=== PATIENT | male | born 1995 | race Caucasian/White ===

== ENCOUNTER → 2017-06-28 11:43 | Outpatient (CLI) | payer OTHER, SELFPAY ==
--- NOTE | 2017-06-28 11:51 | RAD_ITS ---
STUDY: X-RAY - LEFT ELBOW REASON FOR EXAM: Male, 22 years old. Lump TECHNIQUE: 3 view(s) of the elbow. COMPARISON: None. FINDINGS: Normal visualized humerus, radius and ulna. Normal radiocapitellar and ulnotrochlear articulations. There is nonspecific soft tissue swelling inferior to the proximal ulna. There is no radiopaque foreign body or other etiology noted RAD/Elbow min 3 Views IMPRESSION: Normal x-ray examination of the elbow. Nonspecific soft tissue swelling Electronically Signed: Edgar Dailey MD at 12:10 EDT , Service support ,
== END ==
PROVIDERS: Family Provider Pediatrics; PCP Pediatrics; Visit Provider Pediatrics
DX: R22.32 Localized swelling, mass and lump, left upper limb (principal)
CPT/HCPCS: 73080

== ENCOUNTER → 2017-06-28 15:15 | Outpatient (CLI) | payer OTHER, SELFPAY | PROVIDERS: Family Provider Pediatrics; PCP Pediatrics; Visit Provider Pediatrics | DX: R50.9 Fever, unspecified (principal) | CPT/HCPCS: 87081 ==

== ENCOUNTER → 2018-04-18 15:24 | Outpatient (CLI) | payer OTHER, SELFPAY ==
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
--- NOTE | 2018-04-18 15:26 | RAD_ITS ---
STUDY: X-RAY - CERVICAL SPINE REASON FOR EXAM: Male, 22 years old. Neck pain. TECHNIQUE: 4 view(s) of the cervical spine were obtained. COMPARISON: None FINDINGS: Normal anterior atlantoaxial articulation. Normal odontoid process. Normal cervical lordosis. Normal vertebral bodies and endplates. Normal disc space heights. There is no evidence of acute fracture or loss of vertebral axial height. There is maintenance of normal alignment. The soft tissue structures are unremarkable. RAD/Cerv Spine 2 or 3 Views IMPRESSION: Normal x-ray examination of the visualized cervical spine. Electronically Signed: Matt Balderas DO at 20:55 EST Tel [phone], Service support ,
== END ==
PROVIDERS: Family Provider Pediatrics; PCP Pediatrics; Referring Provider Orthopaedic Surgery; Visit Provider Orthopaedic Surgery
DX: M89.8X1 Other specified disorders of bone, shoulder (principal); M54.2 Cervicalgia
CPT/HCPCS: 72040; 73000

== ENCOUNTER → 2018-04-22 16:53 | Outpatient (CLI) | payer OTHER, SELFPAY ==
--- NOTE | 2018-04-22 16:55 | MRI_ITS ---
STUDY: MRI CERVICAL SPINE WITHOUT CONTRAST REASON FOR EXAM: Male, 22 years old. Neck pain and headaches with left shoulder pain TECHNIQUE: Standardized fat and water weighted pulse sequences were obtained in the sagittal and axial planes. COMPARISON: None FINDINGS: Normal foramen magnum and brainstem-cervical cord junction. Normal craniovertebral junction. Normal anterior atlantoaxial articulation. Normal odontoid process. Normal cervical lordosis. Normal vertebral bodies and posterior osseous elements. C2-3: Normal endplates. Normal disc height, signal and morphology. Normal central canal and intervertebral neural foramina. C3-4: Normal endplates. Normal disc height, signal and morphology. Normal central canal and intervertebral neural foramina. C4-5: Normal endplates. Normal disc height, signal and morphology. Normal central canal and intervertebral neural foramina. C5-6: Normal endplates. Normal disc height, signal and morphology. Normal central canal and intervertebral neural foramina. C6-7: Normal endplates. Normal disc height, signal and morphology. Normal central canal and intervertebral neural foramina. C7-T1: Normal endplates. Normal disc height, signal and morphology. Normal central canal and intervertebral neural foramina. Normal cervical cord. Normal visualized soft tissue structures. MRI/Spine Cervical (Routine) IMPRESSION: Normal unenhanced MR examination of the cervical spine. Electronically Signed: Jason Deleon MD at 18:56 EST , Service support ,
== END ==
PROVIDERS: Family Provider Pediatrics; PCP Pediatrics; Referring Provider Orthopaedic Surgery; Visit Provider Orthopaedic Surgery
DX: G54.0 Brachial plexus disorders (principal)
CPT/HCPCS: 72141

== ENCOUNTER → 2018-06-28 06:37 | Outpatient (CLI) | payer OTHER, SELFPAY ==
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
== END ==
PROVIDERS: Family Provider Family Medicine; PCP Family Medicine; Referring Provider Orthopaedic Surgery; Visit Provider Orthopaedic Surgery
DX: G54.0 Brachial plexus disorders (principal)
CPT/HCPCS: 95886; 95910

== ENCOUNTER 2018-08-15 16:30 | Outpatient (RCR) | payer OTHER, SELFPAY ==
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
--- NOTE | 2018-12-12 15:47 | HP.PT.NRP ---
HP - Discharge Summary (1) - Patient Information LAUREN JUDD was seen in my office for initial evaluation on 07/11/18. The following Plan of Care was established for this patient: Initial Frequency: 2x /Week Initial Duration: 4 Weeks - Anticipated Interventions Patient/Client Instruction: Educate patient on: Condition, Plan of Care For the Purpose of:: To decrease pain, To decrease swelling/inflammation, To increase ROM, To improve muscle performance and motor function, To improve ability to perform ADL's, To increase tolerance to activity/condition/position, To improve ability of physical actions for home/community/work/leisure, To improve health of tissue, To decrease soft tissue restriction, To increase flexibility/ROM, To improve health and function, To improve ability to perform tasks related to life management Therapeutic Exercise to Include: Strength training, Postural training, Flexibilty training, Passive ROM, Active ROM For the Purpose of:: To decrease pain, To decrease swelling/inflammation, To increase ROM, To improve nutrient delivery to tissue, To increase oxygenation perfusion, To improve muscle performance and motor function, To improve ability to perform ADL's, To increase tolerance to activity/condition/position, To improve ability of physical actions for home/community/work/leisure, To improve health of tissue, To decrease soft tissue restriction TENS: Yes IF ES: Yes Thermo therapy (hot pack): Yes Ultrasound (thermal/non thermal): Yes For the Purpose of:: To decrease pain, To decrease swelling/inflammation, To increase ROM, To improve health of tissue, To decrease soft tissue restriction, To increase flexibility/ROM This patient was last seen in our office . Pertinent comments regarding their Physical therapy will appear below: At this point I will be discontinuing this patient from physical therapy. I would be happy to see this patient again in the future if found appropriate by the physician. Thank you! Denis Carson, PT, Cert MDT, [facility]
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
== END 2018-08-15 19:00 | disposition home or self-care (01) ==
LOC: PT 16:30
PROVIDERS: Family Provider Family Medicine; PCP Family Medicine; Referring Provider Orthopaedic Surgery; Visit Provider Orthopaedic Surgery
DX: G56.20 Lesion of ulnar nerve, unspecified upper limb (principal)
CPT/HCPCS: 97014; 97035; 97110; 97140; 97161; G0283

== ENCOUNTER → 2018-09-03 | Outpatient (CLI) | payer OTHER, SELFPAY ==
--- NOTE | 2018-09-03 09:05 | MRI_ITS ---
STUDY: MRI BRAIN WITHOUT CONTRAST REASON FOR EXAM: Male, 23 years old. Headaches TECHNIQUE: Standardized multiplanar fat and water weighted pulse sequences were obtained. COMPARISON: CT 10/26/2014 FINDINGS: Normal size of the ventricles and extra-axial spaces for the patient's age. Normal white matter tracts of the supratentorial brain. Normal bilateral basal ganglia. Normal thalami. There is no extra-axial fluid accumulation. Normal flow voids within the major intracranial circulation suggesting patency by spin echo criteria. Normal sella turcica, pituitary gland, infundibular stalk, optic chiasm and hypothalamus. Normal tectal plate and pineal gland. Normal midbrain, jose and medulla. Normal cerebellum. Normal basal cisterns. Normal bilateral temporal bones. Normal bilateral internal auditory canals. No demonstrated orbital abnormality, within the constraints of a routine brain study. Normal visualized paranasal sinuses. Normal calvarium and skull base. Normal visualized soft tissue structures. Normal visualized upper cervical spine. MRI/Brain without Contrast IMPRESSION: Normal unenhanced MRI of the brain. Electronically Signed: Ra Galloway MD at 9:54 EDT Tel , Service support ,
== END | disposition home or self-care (01) ==
LOC: MRI 08:56
PROVIDERS: Family Provider Family Medicine; PCP Family Medicine; Referring Provider Psychiatry & Neurology Neurology; Visit Provider Psychiatry & Neurology Neurology
DX: R51 Headache (principal); M79.602 Pain in left arm; R53.1 Weakness
CPT/HCPCS: 70551

== ENCOUNTER 2019-09-16 19:58 | Emergency (ER) | payer OTHER, SELFPAY ==
[2019-09-16 19:58] VITALS: BP 128/67; PULSE 108; RESP 16; TEMP 36.9; BMI 26.2
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
[2019-09-16] MEDS: Morphine 4 MG/ML Syringe IV (20:57)
[2019-09-16 21:07] LABS: Absolute Neutrophil Count 13.4 X10^3/uL (2.0-7.7); Basophil# 0.04 X10^3/uL; Basophil% 0.2 % (0-1); Eosinophil# 0.01 X10^3/uL; Eosinophils% 0.1 % (0-5); Hematocrit 46.2 % (40-54); Hemoglobin 15.1 g/dL (13.0-16.5); Lymphocyte % 10.5 % (19-41); Mean Corp Hgb Conc 32.7 g/dL (32-36); Mean Corpuscular Hgb 29.5 pg (27.0-32.0); Mean Corpuscular Volume 90.2 fL (80-94); Mean Platelet Vol. 9.8 fl (6.2-12.0); Monocyte% 6.2 % (0-10); NRBC Flagged by Analyzer 0 % (0-5); Neutrophil # 13.37 X10^3/uL (2.7-7.7); Neutrophil % 82.6 % (47-70); Platelet Count 289 K/mm3 (150-450); RBC Distribution Width CV 12.8 % (11.6-14.6); RBC Distribution Width SD 42.3 fl (35.1-43.9); Red Blood Count 5.12 M/mm3 (4.6-6.2); White Blood Count 16.2 K/mm3 (4.4-11.0)
[2019-09-16 21:17] LABS: Anion Gap 8 (5-15); BUN 20 mg/dL (7-18); BUN/Creat Ratio 19.4 RATIO (10-20); Calcium,Total 8.7 mg/dL (8.5-10.1); Chloride 104 mmol/L (98-107); Creatinine, Serum 1.03 mg/dL (0.70-1.30); EST Glomerular Filtration Rate 94 mL/min (>60); Est Glom Filt Rate - Afr Amer 114 mL/min (>60); Glucose 88 mg/dL (74-106); Potassium 3.7 mmol/L (3.5-5.1); Sodium Level 139 mmol/L (136-145)
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
[2019-09-16 22:16] VITALS: BP 128/84; PULSE 85; RESP 15
[2019-09-16 22:16] LABS: Bacteria 0 SEEN /hpf (None Seen); Mucous, Urine 0 SEEN /hpf (<or=2+); Red Blood Cells-Urine 0 SEEN /hpf (0-5); White Blood Cells 0 SEEN /hpf (0-5)
[2019-09-16 22:18] LABS: Color, Urine Straw (Yellow); Glucose, Dipstick Normal (Normal); Ketone-Dipstick Negative (Negative); Leukocyte Esterase-Dipstick Negative /ul (Negative); Nitrite-Dipstick Negative (Negative); Occult Blood-Urine Negative /ul (Negative); Protein-Dipstick Negative (Negative); Urine Bilirubin Dipstick Negative (Negative); Urine Clarity Clear (Clear); Urine Urobilinogen Normal (Normal)
[2019-09-16 22:28] LABS: Squamous Epithelial Cells - UA 0-5 SEEN /hpf (0-5)
[2019-09-16 23:18] VITALS: BP 124/80; PULSE 74; RESP 16; O2SAT 98
== END 2019-09-16 23:24 | disposition home or self-care (01) ==
PROVIDERS: Emergency Provider Emergency Medicine; PCP Family Medicine
DX: S06.0X9A Concussion with loss of consciousness of unspecified duration, initial encounter (principal); S80.02XA Contusion of left knee, initial encounter; S80.01XA Contusion of right knee, initial encounter; S30.811A Abrasion of abdominal wall, initial encounter; M25.532 Pain in left wrist; M25.552 Pain in left hip; V86.56XA Driver of dirt bike or motor/cross bike injured in nontraffic accident, initial encounter; Y93.9 Activity, unspecified; Y92.9 Unspecified place or not applicable; Y99.9 Unspecified external cause status
CPT/HCPCS: 70450; 71260; 72125; 73110; 73130; 73562; 74177; 80048; 81001; 85025; 96374; 99282; Q9967

== ENCOUNTER → 2020-02-16 11:21 | Outpatient (CLI) | payer OTHER, SELFPAY ==
--- NOTE | 2020-02-16 11:35 | RAD_ITS ---
STUDY: X-RAY - LEFT SHOULDER REASON FOR EXAM: Male, 24 years old. Left shoulder pain, rotator cuff syndrome status post pulling injury TECHNIQUE: 4 view(s) of the shoulder. COMPARISON: None. FINDINGS: Normal glenohumeral articulation. Normal acromioclavicular joint. Normal acromion. Normal humeral head and visualized proximal humerus. The soft tissue structures are unremarkable. Normal visualized pulmonary apex. RAD/Shoulder min 2 Views IMPRESSION: Normal x-ray examination of the shoulder. Electronically Signed: Carlos Lees, at 12:53 EST , Service support ,
== END ==
PROVIDERS: PCP Family Medicine; Referring Provider Family Medicine; Visit Provider Family Medicine
DX: M25.512 Pain in left shoulder (principal)
CPT/HCPCS: 73030

== ENCOUNTER → 2020-08-02 16:27 | Outpatient (CLI) | payer OTHER, SELFPAY ==
--- NOTE | 2020-08-02 16:30 | US_ITS ---
STUDY: SCROTUM ULTRASOUND REASON FOR EXAM: Male, 25 years old. Bilateral scrotal pain worse on the right radiation into the right groin. TECHNIQUE: Ultrasound evaluation of the scrotum was performed with color Doppler and static daily-scale imaging. COMPARISON: None. FINDINGS: RIGHT TESTICLE INTRATESTICULAR: There is a normal size of the right testicle. The right testicle measures 4.4 x 2.8 x 2.5 cm. There is a homogenous echotexture. There is normal arterial and normal venous vascularity. There is no demonstrated right testicular mass or cyst. EXTRATESTICULAR: The epididymis is normal in size. The epididymis head measures 0.9 x 1.4 x 0.9 cm. There is normal vascularity of the epididymis. There is no demonstrated epididymal cystic structure. There is a small hydrocele. There is no demonstrated varicocele. There is no demonstrated extratesticular mass or cyst. LEFT TESTICLE INTRATESTICULAR: There is a normal size of the left testicle. The left testicle measures 4.1 x 6.0 x 2 point cm. There is a homogenous echotexture. There is normal arterial and normal venous vascularity. There is no demonstrated left testicular mass or cyst. EXTRATESTICULAR: The epididymis is normal in size. The epididymis head measures 0.9 x 1.2 x 1.1 cm. There is normal vascularity of the epididymis. There is no demonstrated epididymal cystic structure. There is a small hydrocele. There is no demonstrated varicocele. There is no demonstrated extratesticular mass or cyst. US/Testicular with Arterial Flow IMPRESSION: 1. Normal bilateral testicles and epididymides. 2. Small bilateral hydroceles Electronically Signed: Matt Balderas DO at 22:37 EDT Tel [phone], Service support ,
== END ==
PROVIDERS: PCP Family Medicine; Referring Provider Family Medicine; Visit Provider Family Medicine
DX: N50.811 Right testicular pain (principal)
CPT/HCPCS: 76870; 93976

== ENCOUNTER 2020-11-07 22:07 | Observation (INO) | payer OTHER, SELFPAY ==
[2020-11-07] VITALS (7 sets, daily range): BP systolic 118–133; BP diastolic 81–98; PULSE 74–91; RESP 16–22; TEMP 36.5–36.6; O2SAT 98–100; BMI 26.7
--- NOTE | 2020-11-07 22:11 | EKG12_ITS ---
Test Reason : STROKE Blood Pressure : / mmHG Vent. Rate : 082 BPM Atrial Rate : 082 BPM P-R Int : 158 ms QRS Dur : 092 ms QT Int : 356 ms P-R-T Axes : 042 064 038 degrees QTc Int : 415 ms Normal sinus rhythm Normal ECG Confirmed by RAO SIMMONS, YINA ([id number]), video effects editor EDGARD DOE ([id number]) on 11/11/2020 10:34:06 AM Referred By: PACHECO Confirmed By:YINA YEH MD
--- NOTE | 2020-11-07 22:11 | CT_ITS ---
EXAMINATION : Head CT w/out contrast HISTORY : Neuro deficit, acute, stroke suspected COMPARISON : None. TECHNIQUE : Multiple contiguous axial images were obtained from the skull base to the vertex without intravenous contrast. A radiation dose optimization technique was used for this scan. FINDINGS : The ventricles and sulci are normal in size. There is no evidence for acute intracranial hemorrhage, mass effect, or midline shift. There is no extra-axial fluid collection. There is normal hughes-white differentiation, without CT evidence of acute ischemia or infarct. The skull base and calvarium are unremarkable. The orbits are unremarkable. The paranasal sinuses are clear. The mastoid air cells are well-aerated. The soft tissues are unremarkable. CT/STROKE Brain/Head without Cont IMPRESSION: No acute intracranial abnormality. N.B. : The above Results were Read Back by James Lindsey MD to Wood MD, and understanding confirmed on 11/07/2020 22:42:58 (ET). Electronically Signed: James Lindsey MD at 22:30 EDT Tel , Service support ,
--- NOTE | 2020-11-07 22:18 | CT_ITS ---
We are attempting to reach an attending provider to discuss findings. An addendum with communication details will be sent when the communication is complete. STUDY: CTA HEAD AND NECK WITH CONTRAST REASON FOR EXAM: Male, 25 years old. Stroke. Left hand numbness. Difficulty speaking. RADIATION DOSAGE (If Supplied By Facility): CTDIvol = ( 14.81 ) mGy, DLP = ( 631.62 ) mGycm TECHNIQUE: CT angiography was performed with a multi-detector CT scanner. Data acquisition was obtained from the skull base through the vertex following intravenous administration of IV 100mL [id number]-[id number]. MIP images were reconstructed from the axial data set. Post-processing of the angiographic images was performed, with multiplanar reformation and 3D reconstruction. Individualized dose optimization techniques were used for this CT. COMPARISON: CT scan, 11/09/2020. FINDINGS: Normal bilateral petrous carotid arteries. Normal right cavernous carotid artery with a normal supraclinoid bifurcation. Normal left cavernous carotid artery with a normal supraclinoid bifurcation. Normal right A1 segments of the anterior cerebral artery. Normal left A1 segments of the anterior cerebral artery. Normal intact anterior communicating artery (ACOM). Normal bilateral A2 segments of the anterior cerebral arteries. Normal right M1 and M2 segments of the middle cerebral arteries, with a normal M1 bifurcation. Normal left M1 and M2 segments of the middle cerebral arteries, with a normal M1 bifurcation. Normal right posterior communicating artery (PCOM). Normal left posterior communicating artery (PCOM). There is a small atretic right vertebral artery with a dominant left vertebral artery. Normal basilar artery with a normal basilar bifurcation. The visualized bilateral superior cerebellar (SCA) arteries are normal. Normal bilateral P1, P2 and visualized P3 segments of the posterior cerebral arteries. There is no demonstrated aneurysm of the [place]. There is no demonstrated abnormality of the visualized brain. AORTIC ARCH: Normal visualized aortic arch. Normal origins of the brachiocephalic, left common carotid, and left subclavian arteries. RIGHT CAROTID ARTERIES: Normal right common carotid artery (CCA). Normal right common carotid bulb. Normal origin of the right internal carotid (ICA) artery without a hemodynamically significant stenosis. Normal visualized cervical portion of the right internal carotid artery. Normal origin of the right external carotid artery (ECA). LEFT CAROTID ARTERIES: Normal left common carotid artery (CCA). Normal left common carotid bulb. Normal origin of the left internal carotid (ICA) artery without a hemodynamically significant stenosis. Normal visualized cervical portion of the left internal carotid artery. Normal origin of the left external carotid artery (ECA). VERTEBRAL ARTERIES: Markedly diminutive right vertebral artery. The left artery is enlarged. An incidental finding is the evidence of gas within the spinal canal from the level of T1 on 4 the level C1. This extends into the soft tissues posterior to the left side of the C1 posterior arch. Air is also seen extending on the lateral foramen and within the soft tissues about the transverse processes of C6 and C7. There is no evidence of pneumothorax. There is no visualized spinal fracture. CT/CTA Head AND Neck W/ Contrast IMPRESSION: 1. Normal CTA Head and neck with contrast. 2. Gas within the cervical final canal unknown etiology. Question recent surgery or injection. Electronically Signed: Matt Balderas DO at 22:50 EDT Tel [phone], Service support ,
--- NOTE | 2020-11-07 22:28 | CM.ED ---
SW Note Referral Source: Stroke Alert Referral Reason: Stroke Alert SW responded to stroke alert. Present was patient's mother, Dione Rowe and patient' fimary jane' Katherine. SW educated them on what is transpiring in regards to a stroke. SW provided emotional support. SW remain available if needs arise. Plan: Emotional support to stroke alert Kelli VILLANUEVA
[2020-11-07 22:32] LABS: Absolute Lymphocyte Count 0.98 X10^3/uL (0.83-4.51); Absolute Neutrophil Count 9.1 X10^3/uL (2.0-7.7); Basophil# 0.03 X10^3/uL; Basophil% 0.3 % (0-1); Eosinophil# 0.04 X10^3/uL; Eosinophils% 0.4 % (0-5); Hematocrit 46.5 % (40-54); Hemoglobin 15.4 g/dL (13.0-16.5); Lymphocyte # 0.98 X10^3/ul (0.83-4.51); Lymphocyte % 9.5 % (19-41); Mean Corp Hgb Conc 33.1 g/dL (32-36); Mean Corpuscular Hgb 29.6 pg (27.0-32.0); Mean Corpuscular Volume 89.3 fL (80-94); Mean Platelet Vol. 9.3 fl (6.2-12.0); Monocyte# 0.18 X10^3/uL; Monocyte% 1.7 % (0-10); NRBC Flagged by Analyzer 0 % (0-5); Neutrophil # 9.12 X10^3/uL (2.7-7.7); Neutrophil % 87.9 % (47-70); Platelet Count 302 K/mm3 (150-450); RBC Distribution Width CV 12.6 % (11.6-14.6); RBC Distribution Width SD 41.6 fl (35.1-43.9); Red Blood Count 5.21 M/mm3 (4.6-6.2); White Blood Count 10.4 K/mm3 (4.4-11.0)
[2020-11-07 22:45] LABS: Partial Thromboplast Time 31.4 Seconds (24.1-36.2); Prothrombin Time (Protime)PT. 12.4 SECONDS (11.7-14.9)
--- NOTE | 2020-11-07 22:48 | RAD_ITS ---
STUDY: X-RAY CHEST REASON FOR EXAM: Male, 25 years old. No deficit. Question acute stroke. TECHNIQUE: Single AP portable view of the chest. COMPARISON: CT of the chest, 09/16/2019. FINDINGS: The lungs are clear and expanded. There is no demonstrated pleural abnormality. Normal size heart. Normal mediastinum and mark. Normal visualized pulmonary arteries. Normal visualized aortic arch and descending thoracic aorta. Normal visualized thoracic spine. Normal visualized ribs, clavicles, and shoulders. There is no demonstrated abnormality of the visualized soft tissue structures of the upper abdomen. RAD/Chest 1 View IMPRESSION: Normal x-ray examination of the chest. Electronically Signed: Matt Balderas DO at 23:28 EDT Tel [phone], Service support ,
[2020-11-07 22:52] LABS: Anion Gap 3 (5-15); BUN 17 mg/dL (7-18); BUN/Creat Ratio 17.6 RATIO (10-20); Calcium,Total 9.1 mg/dL (8.5-10.1); Chloride 109 mmol/L (98-107); Creatinine, Serum 0.96 mg/dL (0.70-1.30); EST Glomerular Filtration Rate 101 mL/min (>60); Est Glom Filt Rate - Afr Amer 122 mL/min (>60); Estimated Creatinine Clearance 109.98 ml/min; Glucose 116 mg/dL (74-106); Potassium 4.3 mmol/L (3.5-5.1); Sodium Level 139 mmol/L (136-145); Troponin-I HS 4 pg/mL (3.0-78.0)
--- NOTE | 2020-11-07 23:10 | PCM.HP.STD ---
Documented by User: CATALINO Francis 11/08/20 00:05 HPI - General General Date of Admission: 11/07/20 Date of Service: 11/07/20 Chief Complaint: Slurred speech HPI Narrative LAUREN JUDD, is a 25 M who presents with complaints of slurred speech and increased numbness in his left arm. Patient states he has chronic headaches for which he has failed multiple treatments including Lyrica and gabapentin. Patient received a cervical injection from Dr. Magallon earlier today. Patient also has ulnar nerve compression and experiences numbness and his pinky and ring finger on the left hand. Patient states when he was worked up from his he felt funny and was told that he was speaking funny by a client he was open to the phone. Patient denies fever, chills, shortness of breath, cough, chest pain, nausea, vomiting. [facility] Home Medications NK 11/07/20 [History Last Taken Unknown] Allergy/AdvReac Type Severity Reaction Status Date / Time doxycycline AdvReac NEEDS Verified 11/07/20 22:08 FOLLOW-UP no significant family history no surgical history Social History (Updated 11/07/20 @ 23:52 by CATALINO Francis) Smoking Status: Never smoker alcohol intake: current alcohol intake frequency: a few times a month substance use type: does not use ROS Constitutional Constitutional: Denies anorexia, chills, fatigue, fever(s) or weakness Cardiovascular Cardiovascular: Denies chest pain, edema or palpitations Respiratory/Chest Respiratory/Chest: Denies cough, shortness of breath at rest or shortness of breath with exertion Gastrointestinal Gastrointestinal: Denies abdominal pain, constipation, diarrhea, nausea or vomiting Genitourinary Genitourinary: Denies dysuria Musculoskeletal Musculoskeletal: Denies back pain, extremity pain, joint pain or joint stiffness Integumentary Integumentary: Denies dry skin Neurologic Neurologic: Reports abnormal speech and numbness Psychiatric Psychiatric: Denies anxiety or depression Endocrine Endocrinology: Denies change in body appearance Hematologic/Lymphatic Hematologic/Lymphatic: Denies easy bleeding or easy bruising Vital Signs Vital Signs Vital Signs: 11/07/20 22:17 11/07/20 22:27 11/07/20 22:30 Temperature 97.7 F L 97.7 F L Temperature Source Temporal Temporal Pulse Rate 81 81 91 Respiratory Rate 16 16 21 H Blood Pressure 133/88 H 133/88 H 129/83 H Blood Pressure Mean 103 103 98 Pulse Ox 100 100 100 Oxygen Delivery Method Room Air Room Air Room Air 11/07/20 22:33 11/07/20 23:03 Temperature Temperature Source Pulse Rate 84 76 Respiratory Rate 16 16 Blood Pressure 129/83 H 127/86 H Blood Pressure Mean 98 99 Pulse Ox 100 98 Oxygen Delivery Method Room Air Room Air Weight Weight: 170 lb 10.205 oz Body Mass Index (BMI) 26.7 Physical Exam Const alert, oriented x3 and no apparent distress General Appearance: cooperative HEENT normocephalic and head/scalp atraumatic Eyes conjunctivae normal and no scleral icterus Neck supple and no JVD General: trachea midline Resp normal respiratory effort, normal air movement and clear to auscultation bilaterally Cardio regular rate, regular rhythm, S1 normal heart sound and S2 normal heart sound GI normal to inspection, nondistended, normoactive bowel sounds, soft to palpation and non-tender Extremity normal capillary refill and no clubbing, cyanosis or edema General Extremity: no tenderness to palpation of joints or extremities Skin General Skin Exam: no breakdown and turgor normal Lesions: no lesions Rashes: no rashes Neuro moves all extremities, no focal motor deficits and gait normal Speech: speech abnormal Details: Positive for stuttering Sensory Exam: extremities Motor Exam: strength 5/5 throughout Psych thought process normal, cooperative and affect normal Appearance: appropriate Results Lab / Micro Data Result Diagrams: 11/07/20 22:17 11/07/20 22:17 Labs: Laboratory Results - last 24 hr 11/07/20 22:17: WBC 10.4, RBC 5.21, Hgb 15.4, Hct 46.5, MCV 89.3, MCH 29.6, MCHC 33.1, RDW Std Deviation 41.6, RDW Coeff of [place] 12.6, Plt Count 302, MPV 9.3, Immature Gran % (Auto) 0.200, Neut % (Auto) 87.9 H, Lymph % (Auto) 9.5 L, [place] % (Auto) 1.7, Eos % (Auto) 0.4, Baso % (Auto) 0.3, Absolute Neuts (auto) 9.1 H, Absolute Lymphs (auto) 0.98, Nucleated RBC % 0 11/07/20 22:17: PT 12.4, INR 1.0, APTT 31.4 11/07/20 22:17: Sodium 139, Potassium 4.3, Chloride 109 H, Carbon Dioxide 27.0, Anion Gap 3 L, BUN 17, Creatinine 0.96, Estim Creat Clear Calc 109.98, Est GFR (MDRD) Af Amer 122, Est GFR (MDRD) Non-Af 101, BUN/Creatinine Ratio 17.6, Glucose 116 H, Calcium 9.1, Troponin I High Sens 4 Radiology Impression Head/Neck CTA 11/07/20 22:18 IMPRESSION: 1. Normal CTA Head and neck with contrast. 2. Gas within the cervical final canal unknown etiology. Question recent surgery or injection. Electronically Signed: Matt Balderas DO at 22:50 EDT Tel [phone], Service support , ADDENDUM: 11/07/20 2259 IMPRESSION: 1. Normal CTA Head and neck with contrast. 2. Gas within the cervical final canal unknown etiology. Question recent surgery or injection. N.B. : The above Results were Read Back by Matt Balderas DO to Matthew Wood MD, and understanding confirmed on 11/07/2020 22:52:47 (ET). Electronically Signed: Matt Balderas DO at 22:50 EDT Tel [phone], Service support , Assessment & Plan Assessment/Plan (1) Slurred speech: PLAN: 1. Slurred speech -Admit PCU for observation and NIH stroke scale monitoring -CT and CTA negative for acute findings with the exception of gas within the cervical canal from the level of T1 to level C1. This finding is consistent with injection performed by Dr. Magallon earlier today. -PT, ST and OT to eval and treat -Brain MRI ordered -Every 4 hours vital signs and NIH stroke scale monitoring -CBC, CMP, lipid profile ordered for a.m. as well as TSH, magnesium, hemoglobin A1c. -Urine drug screen positive for benzodiazepines however this may be a result of patient's injection earlier today. -TPA not administered due to resolution of symptoms upon arrival to ER. 2. Chronic headaches -Patient has tried multiple treatments in the past which have not been effective. -Patient denies that he has ever had migraines however discussed with patient that this may be a presentation of complex migraine which is not always present with headache. -As stated above patient received cervical injection by Dr. Magallon earlier today 3. Ulnar nerve neuropathy -Patient states is normal for his pinky ring finger and half of his middle finger to be numb however patient reports currently that his entire hand and forearm are numb. DVT prophylaxis-not indicated, encourage ambulation This patient was seen by CATALINO Francis under the supervision of Dr. Francois. Documented by User: Dr. Alice Francois MD 11/08/20 00:56 HPI - General General Date of Admission: 11/07/20 [facility] Home Medications NK 11/07/20 [History Last Taken Unknown] Allergy/AdvReac Type Severity Reaction Status Date / Time doxycycline AdvReac NEEDS Verified 11/07/20 22:08 FOLLOW-UP Social History (Updated 11/07/20 @ 23:52 by CATALINO Francis) Smoking Status: Never smoker alcohol intake: current alcohol intake frequency: a few times a month substance use type: does not use Results Lab / Micro Data Result Diagrams: 11/07/20 22:17 11/07/20 22:17
--- NOTE | 2020-11-07 23:46 | EDS_ITS ---
HPI History of Present Illness Chief Complaint: Neuro S/Sx Narrative Narrative: Patient presents with speech difficulty. He had a cervical spine injection for chronic headaches earlier today he went to take a nap when he woke up he had slurred speech per family. Apparently he was on the phone with a client who also commented about his speech. He arrives to the ED he thinks he is improved but tells me his speech is worse when he is anxious. No weakness, no vision changes, no sensory deficits. He has chronic left sided sensory deficit. [facility] PFS Home Medications NK 11/07/20 [History Last Taken Unknown] Allergy/AdvReac Type Severity Reaction Status Date / Time doxycycline AdvReac NEEDS Verified 11/07/20 22:08 FOLLOW-UP Social History (Updated 07/04/18 @ 16:[address] Jesus Mendoza, ) Smoking Status: Never smoker ROS ROS ED ROS Narrative Past medical history: Reviewed Medications: Reviewed Social history: Noncontributory Review of systems: All systems negative except as indicated General: No fever Eyes: No visual changes ENT: No upper airway congestion, normal voice Neck: No neck pain Cardiovascular: No chest pain Respiratory: No shortness of breath or cough Gastrointestinal: No abdominal pain, nausea vomiting or diarrhea Genitourinary: No dysuria Musculoskeletal: Denies myalgias no difficulty with ambulation Skin: No rash Neurological: Speech difficulty as in HPI, otherwise no other focal weakness Psych: No recent behavioral changes Hematologic: No easy bleeding or easy bruising EXAM Physical Exam Narrative Exam Narrative: Physical exam General: Well nourished, Well developed, No Acute Distress Head: Normocephalic, Atraumatic Eyes: Conjunctiva not pale ENT: Moist mucous membranes Neck: Supple, Nontender, No lymphadenopathy Cardiovascular: Regular rate, Regular rhythm Respiratory: No distress, CTA bilaterally Abdomen: Soft, Nontender, Nondistended Back: Nontender, Normal Inspection. Negative for: CVA tenderness Extremities: Nontender, No edema Skin: Normal color, No rash Neurological: Alert, Normal Strength, Normal Sensation. See NIH stroke scale. Right lower quadrant he has no aphasia and no dysarthria when I examined him. Psychological: Normal affect Const Vital Signs: 11/07/20 22:17 11/07/20 22:27 11/07/20 22:30 Temperature 97.7 F L 97.7 F L Temperature Source Temporal Temporal Pulse Rate 81 81 91 Respiratory Rate 16 16 21 H Blood Pressure 133/88 H 133/88 H 129/83 H Blood Pressure Mean 103 103 98 Pulse Ox 100 100 100 Oxygen Delivery Method Room Air Room Air Room Air 11/07/20 22:33 11/07/20 23:03 11/07/20 23:30 Temperature Temperature Source Pulse Rate 84 76 74 Respiratory Rate 16 16 22 H Blood Pressure 129/83 H 127/86 H 132/81 H Blood Pressure Mean 98 99 98 Pulse Ox 100 98 100 Oxygen Delivery Method Room Air Room Air Room Air STROKE Vital Signs/Narrative: Vital Signs Temp Pulse Resp BP Pulse Ox 11/07/20 23:30 74 22 H 132/81 H 100 11/07/20 23:03 76 16 127/86 H 98 11/07/20 22:33 84 16 129/83 H 100 11/07/20 22:30 91 21 H 129/83 H 100 11/07/20 22:27 97.7 F L 81 16 133/88 H 100 11/07/20 22:17 97.7 F L 81 16 133/88 H 100 NIHSS Initial: 1a Level of Consciousness: 0 1b LOC Questions (Score 2 if aphasic/stupor): 0 1c LOC Commands (Only score 1st attempt): 0 2 Best Gaze (If aphasic, use reflexive mvmts.): 0 3 Visual: 0 4 Facial Palsy: 0 5 Motor Arm Right (UN = amputation/fusion): 0 5 Motor Arm Left: 0 6 Motor Leg Right: 0 6 Motor Leg Left: 0 7 Limb ataxia (Only + if out of proportion): 0 8 Sensory (Aphasia/stupor=0 or 1, coma=2): 0 9 Best Language: 0 10 Dysarthria (mute, coma=2, intubated=UN): 0 11 Extinction and Inattention (only scored if +): 0 Total Score: 0 MDM MDM MDM Narrative Medical decision making narrative: A stroke work-up per protocol was done. Patient does not meet criteria for TPA secondary to NIH stroke scale of 0. He was also seen by stroke neurologist from [facility] who agrees. We will admit the patient for an MRI. Lab Data Labs: Laboratory Results - last 24 hr 11/07/20 11/07/20 11/07/20 22:17 22:17 22:17 WBC 10.4 RBC 5.21 Hgb 15.4 Hct 46.5 MCV 89.3 MCH 29.6 MCHC 33.1 RDW Std Deviation 41.6 RDW Coeff of Conchita 12.6 Plt Count 302 MPV 9.3 Immature Gran % (Auto) 0.200 Neut % (Auto) 87.9 H Lymph % (Auto) 9.5 L [place] % (Auto) 1.7 Eos % (Auto) 0.4 Baso % (Auto) 0.3 Absolute Neuts (auto) 9.1 H Absolute Lymphs (auto) 0.98 Nucleated RBC % 0 PT 12.4 INR 1.0 APTT 31.4 Sodium 139 Potassium 4.3 Chloride 109 H Carbon Dioxide 27.0 Anion Gap 3 L BUN 17 Creatinine 0.96 Estim Creat Clear Calc 109.98 Est GFR (MDRD) Af Amer 122 Est GFR (MDRD) Non-Af 101 BUN/Creatinine Ratio 17.6 Glucose 116 H Calcium 9.1 Troponin I High Sens 4 Ur Drug Screen Comment 11/07/20 23:30 WBC RBC Hgb Hct MCV MCH MCHC RDW Std Deviation RDW Coeff of Conchita Plt Count MPV Immature Gran % (Auto) Neut % (Auto) Lymph % (Auto) [place] % (Auto) Eos % (Auto) Baso % (Auto) Absolute Neuts (auto) Absolute Lymphs (auto) Nucleated RBC % PT INR APTT Sodium Potassium Chloride Carbon Dioxide Anion Gap BUN Creatinine Estim Creat Clear Calc Est GFR (MDRD) Af Amer Est GFR (MDRD) Non-Af BUN/Creatinine Ratio Glucose Calcium Troponin I High Sens Ur Drug Screen Comment Radiography Diagnostic Testing: Radiology Impression Brain CT 11/07/20 22:11 IMPRESSION: No acute intracranial abnormality. N.B. : The above Results were Read Back by James Lindsey MD to Wood MD, and understanding confirmed on 11/07/2020 22:42:58 (ET). Electronically Signed: James Lindsey MD at 22:30 EDT Tel , Service support , Head/Neck CTA 11/07/20 22:18 IMPRESSION: 1. Normal CTA Head and neck with contrast. 2. Gas within the cervical final canal unknown etiology. Question recent surgery or injection. Electronically Signed: Matt Balderas DO at 22:50 EDT Tel [phone], Service support , ADDENDUM: 11/07/20 3633 IMPRESSION: 1. Normal CTA Head and neck with contrast. 2. Gas within the cervical final canal unknown etiology. Question recent surgery or injection. N.B. : The above Results were Read Back by Matt Balderas DO to Matthew Wood MD, and understanding confirmed on 11/07/2020 22:52:47 (ET). Electronically Signed: Matt Balderas DO at 22:50 EDT Tel [phone], Service support , Chest X-Ray 11/07/20 22:48 IMPRESSION: Normal x-ray examination of the chest. Electronically Signed: Matt Balderas DO at 23:28 EDT Tel [phone], Service support , Discharge Plan Triage Chief Complaint: Neuro S/Sx ED Provider: Matthew Wood Dx/Rx/DC Orders Clinical Impression: Slurred speech Prescriptions: No Action NK RF: 0 Primary Care Provider: [facility] Referrals: [facility] Bettencourt DO [Primary Care Provider] - Disposition Disposition: Acute Care Hospital [facility]
[2020-11-07 23:51] LABS: Amphetamine Urine VISTA NEGATIVE (<1000 ng/mL); Barbiturate Urine VISTA NEGATIVE (< 200 ng/mL); Benzodiazepine Urine VISTA POSITIVE (< 200 ng/mL); Cocaine Urine VISTA NEGATIVE (< 300 ng/mL); Ecstacy Urine VISTA NEGATIVE (< 500 ng/mL); Methadone Urine VISTA NEGATIVE (< 300 ng/mL); PCP Urine VISTA NEGATIVE (< 25 ng/mL); THC Urine VISTA NEGATIVE (< 50 ng/mL); Vista UDS pH Range 6
[2020-11-08] VITALS (10 sets, daily range): BP systolic 103–138; BP diastolic 48–88; PULSE 65–747; RESP 16–21; TEMP 36.7; O2SAT 97–100; BMI 26.2
[2020-11-08] LABS: Magnesium 2.3 mg/dL (1.6-2.6); Thyroid Stim Hormone (TSH) 0.93 uIU/mL (0.358-3.74)
[2020-11-08 00:50] LABS: Hemoglobin A1c 5.2 % (3.8-5.6)
--- NOTE | 2020-11-08 00:50 | MRI_ITS ---
EXAM: MR HEAD WITHOUT INTRAVENOUS CONTRAST CLINICAL INDICATION: CVA, slurred speech x few hours last pm TECHNIQUE: Multiplanar and multisequence MR images of the brain were obtained without intravenous contrast. This report was created using milog report generation technology. COMPARISON: CT head without contrast 11/07/2020. FINDINGS: BRAIN AND EXTRA-AXIAL SPACES: No diffusion restriction throughout the brain parenchyma. 2 varying size lesions in the body of the left caudate nucleus (series 7, image 16; series 8, image 16). These were present previously and are unchanged. No intra- or extra-axial hemorrhage. No evidence of acute infarct. No intracranial mass or mass effect. There is preservation of the daily/white matter interface. Posterior fossa structures are unremarkable. Basal cisterns are patent. SELLA: Unremarkable. Normal sella turcica, pituitary gland, infundibular stalk, optic chiasm and hypothalamus. AUDITORY SYSTEM: Unremarkable. The internal auditory canals are patent. BONES/JOINTS: Unremarkable. No discrete lytic or blastic abnormalities. SINUSES: Unremarkable as visualized. Clear. MASTOID AIR CELLS: Unremarkable as visualized. Clear. ORBITS: Unremarkable as visualized. Both globes, extraocular muscles, optic nerves and retrobulbar fat appear unremarkable. VASCULATURE: Unremarkable as visualized. Normal flow voids in the major intracranial circulation. MRI/Brain without Contrast IMPRESSION: 1. No MRI evidence of acute or subacute ischemic infarct. 2. 2 abnormal lesions in the body of the left caudate nucleus (series 7 and 8, image 16). These were present previously and are unchanged. These are benign lesions but the exact etiology is unknown at this time. MRI of the brain with intravenous contrast to include thin multiplanar sections will help clarify. Electronically Signed: Joo Roberson MD at 14:00 EDT , Service support ,
[2020-11-08] MEDS: 0.9% Normal Saline 1,000 ML 100 ML IV (01:36)
[2020-11-08] MEDS: 0.9% Saline Lock 10 ML Syringe IV (01:39)
[2020-11-08 06:07] LABS: Absolute Lymphocyte Count 0.64 X10^3/uL (0.83-4.51); Absolute Neutrophil Count 9.7 X10^3/uL (2.0-7.7); Basophil# 0.01 X10^3/uL; Basophil% 0.1 % (0-1); Hematocrit 43.5 % (40-54); Hemoglobin 14.7 g/dL (13.0-16.5); Lymphocyte # 0.64 X10^3/ul (0.83-4.51); Lymphocyte % 6.1 % (19-41); Mean Corp Hgb Conc 33.8 g/dL (32-36); Mean Corpuscular Hgb 29.7 pg (27.0-32.0); Mean Corpuscular Volume 87.9 fL (80-94); Mean Platelet Vol. 9.6 fl (6.2-12.0); Monocyte# 0.19 X10^3/uL; Monocyte% 1.8 % (0-10); NRBC Flagged by Analyzer 0 % (0-5); Neutrophil # 9.68 X10^3/uL (2.7-7.7); Neutrophil % 91.7 % (47-70); Platelet Count 317 K/mm3 (150-450); RBC Distribution Width CV 12.4 % (11.6-14.6); RBC Distribution Width SD 40.2 fl (35.1-43.9); Red Blood Count 4.95 M/mm3 (4.6-6.2); White Blood Count 10.6 K/mm3 (4.4-11.0)
--- NOTE | 2020-11-08 06:09 | PCS.PANDOC ---
PANDEMIC DOCUMENTATION INITIATED: Date: 11/08/2020 Time: 49
[2020-11-08 07:01] LABS: ALB/GLOB Ratio 1.1 RATIO (0.9-2.4); AST(SGOT) 15 U/L (15-37); Alanine Aminotransfer ALT/SGPT 32 U/L (16-61); Albumin, Serum 3.8 g/dL (3.2-5.0); Alkaline Phosphatase 80 U/L (45-117); Anion Gap 6 (5-15); BUN 16 mg/dL (7-18); BUN/Creat Ratio 19.8 RATIO (10-20); Chloride 106 mmol/L (98-107); Cholesterol 204 mg/dL (200); Creatinine, Serum 0.81 mg/dL (0.70-1.30); EST Glomerular Filtration Rate 123 mL/min (>60); Est Glom Filt Rate - Afr Amer 149 mL/min (>60); Estimated Creatinine Clearance 130.34 ml/min; Globulin 3.6 g/dL (2.2-4.2); Glucose 157 mg/dL (74-106); High Density Lipoprotein 53 mg/dL; Potassium 4.3 mmol/L (3.5-5.1); Protein, Total 7.4 g/dL (6.4-8.2); Sodium Level 137 mmol/L (136-145); Triglycerides 74 mg/dL; Very Low Density Lipoprotein 15 mg/dL (5-40)
[2020-11-08 07:36] LABS: Bedside Glucose 141 mg/dL (70-110)
[2020-11-08] MEDS: Aspirin 81 MG TAB.CHEW PO (09:24)
--- NOTE | 2020-11-08 10:20 | CASEMGMT ---
PHQ-9 completed, no indications of depression at this time. FREDDY No
--- NOTE | 2020-11-08 13:53 | DCINST_ITS ---
Discharge Instructions Diet Discharge Diet: No restrictions Activity Discharge Activity: Return to Normal Activity Dressing / Incision Call your doctor if you observe: Shortness of breath, Dizziness, Chest pain and - (Worsening numbness/tingling, new neurologic symptoms) Follow Up Care Test Results: Test results from this visit will be discussed in further detail a t your follow-up appointment, if applicable. Discharge Plan Admission Admit Date/Time: 11/07/20 23:14 Primary Reason for Your Visit: Neurologic symptoms Attending Provider: Stella Casiano Primary Care Provider: [facility] Consulting Providers: Gemini Magallon Discharge Orders/Prescriptions Prescriptions: No Action Advil 1 tab PO/SL PRN PRN (Reason: Cold Symptoms) RF: 0 Referrals / Follow Up: Gemini Magallon MD [STAFF PHYSICIAN] - In 1 Week [facility] DO [Primary Care Provider] - In 1 Week Josr Celeste MD [STAFF PHYSICIAN] - In 1 Week Disposition Disposition (needs filled in before D/C Order can be placed): Home, Self Care
--- NOTE | 2020-11-08 14:01 | DS.PCM_ITS ---
Documented by User: Kylee Reyes NP, D[employer] SAL[employer] DIRECTOR-C 11/08/20 14:15 Providers Date of Admission: 11/07/20 Date of Discharge: 11/08/20 Primary Care Physician: Dr. [facility] Bettencourt, Consultations 11/08/20 01:05 Consult: Pain Management Routine Consulting Provider: Gemini Magallon Reason for Consult: post injection slurred speech EMERGENT Consult: No MD Notified: Yes Date Notified: 11/08/20 Time Notified: 01:05 Method of Notification: Verbal Comments:: office administrator called back, Dr. Magallon aware Reason For Visit: DYSARTHRIA, CVA Diagnosis Discharge Diagnosis (1) Slurred speech: Status: Acute Code(s): R47.81 - Slurred speech Medications at Discharge Home Medications Advil 1 tab PO/SL PRN PRN 11/08/20 Hospital Course Operations None Procedures None Summary of Care Provided Minutes Spent on Discharge: 35 Hospital Course: Patient is a 25-year-old male admitted 11/07/2020 due to slurred speech. 1. Transient dysarthria, confusion-CVA ruled out. Patient underwent cervical injection by pain management prior to symptom onset. He states he has had previous cervical injections in the past without any symptoms or reactions. His symptoms have resolved. MRI of brain without infarct. 2 abnormal lesions in the body of the left caudate nucleus that were present previously and unchanged. Benign lesions however etiology unknown. Planned for [facility] neurology consult however patient requesting discharge home. Referred to neurology for further outpatient follow-up. Follow-up with pain management in 1 week. Follow-up with PCP in 1 week. 2. Chronic ulnar nerve neuropathy-follows with pain management, Dr. Magallon. Chronic left upper extremity paresthesias. Patient seen and examined prior to discharge. Physical assessment as noted below. Patient is stable for discharge with follow up recommendations as noted above. This patient was seen by CATALINO Toure under the supervision of Dr. Casiano. Physical Exam Const alert, oriented x3 and no apparent distress Orientation / Consciousness: awake, oriented to person, oriented to place and oriented to time HEENT normocephalic and moist oral mucous membranes Eyes PERRL, EOMs intact bilaterally and conjunctivae normal Neck no lymphadenopathy Resp normal respiratory effort and clear to auscultation bilaterally Cardio regular rate, regular rhythm and no murmurs Peripheral Pulses: pulses 2+ throughout GI normal to inspection, nondistended, normoactive bowel sounds, non-tender and non-distended Extremity normal to inspection Skin no rashes or lesions noted Lesions: no lesions Rashes: no rashes Trauma: no lacerations or abrasions Neuro CN's II-XII intact bilaterally, no focal motor deficits, no sensory deficits noted and deep tendon reflexes 2+ bilaterally Neuro Narrative: Chronic left upper extremity paresthesias. Psych mental status grossly normal and affect normal Weight / BMI Weight Weight: 166 lb 14.239 oz Body Mass Index (BMI) 26.2 ABG / Lab / Microbiology Data Result Diagrams: 11/08/20 04:55 11/08/20 04:55 Laboratory: Laboratory Results - last 24 hr 11/07/20 22:11: Magnesium 2.3, TSH 0.93 11/07/20 22:11: Hemoglobin A1c 5.2 11/07/20 22:11: POC Glucose 141 H 11/07/20 22:17: WBC 10.4, RBC 5.21, Hgb 15.4, Hct 46.5, MCV 89.3, MCH 29.6, MCHC 33.1, RDW Std Deviation 41.6, RDW Coeff of Conchita 12.6, Plt Count 302, MPV 9.3, Imm ature Gran % (Auto) 0.200, Neut % (Auto) 87.9 H, Lymph % (Auto) 9.5 L, [place] % (Auto) 1.7, Eos % (Auto) 0.4, Baso % (Auto) 0.3, Absolute Neuts (auto) 9.1 H, Absolute Lymphs (auto) 0.98, Nucleated RBC % 0 11/07/20 22:17: PT 12.4, INR 1.0, APTT 31.4 11/07/20 22:17: Sodium 139, Potassium 4.3, Chloride 109 H, Carbon Dioxide 27.0, Anion Gap 3 L, BUN 17, Creatinine 0.96, Estim Creat Clear Calc 109.98, Est GFR (MDRD) Af Amer 122, Est GFR (MDRD) Non-Af 101, BUN/Creatinine Ratio 17.6, Glucose 116 H, Calcium 9.1, Troponin I High Sens 4 11/07/20 23:30: Urine Opiates Screen NEGATIVE, Urine Methadone Screen NEGATIVE, Ur Barbiturates Screen NEGATIVE, Ur Phencyclidine Scrn NEGATIVE, Ur Amphetamines Screen NEGATIVE, U Methamphetamin-MDMA NEGATIVE, U Benzodiazepines Scrn POSITIVE H, Urine Cocaine Screen NEGATIVE, U Cannabinoids Screen NEGATIVE, Ur Drug Screen Comment 11/08/20 04:55: WBC 10.6, RBC 4.95, Hgb 14.7, Hct 43.5, MCV 87.9, MCH 29.7, MCHC 33.8, RDW Std Deviation 40.2, RDW Coeff of Conchita 12.4, Plt Count 317, MPV 9.6, Immature Gran % (Auto) 0.300, Neut % (Auto) 91.7 H, Lymph % (Auto) 6.1 L, [place] % (Auto) 1.8, Eos % (Auto) 0.0, Baso % (Auto) 0.1, Absolute Neuts (auto) 9.7 H, Absolute Lymphs (auto) 0.64 L, Nucleated RBC % 0 11/08/20 04:55: Sodium 137, Potassium 4.3, Chloride 106, Carbon Dioxide 25.0, Anion Gap 6, BUN 16, Creatinine 0.81, Estim Creat Clear Calc 130.34, Est GFR (MDRD) Af Amer 149, Est GFR (MDRD) Non-Af 123, BUN/Creatinine Ratio 19.8, Glucose 157 H, Calcium 9.0, Total Bilirubin 0.40, AST 15, ALT 32, Alkaline Phosphatase 80, Total Protein 7.4, Albumin 3.8, Globulin 3.6, Albumin/Globulin Ratio 1.1, Triglycerides 74, Cholesterol 204 H, LDL Cholesterol 136 H, VLDL Cholesterol 15, HDL Cholesterol 53 Microbiology: Microbiology 11/08/20 01:35 Nasal Secretion SARS-CoV-2 Antigen (Rapid) - Final Radiography Diagnostic Testing: Radiology Impression Brain CT 11/07/20 22:11 IMPRESSION: No acute intracranial abnormality. N.B. : The above Results were Read Back by James Lindsey MD to Wood MD, and understanding confirmed on 11/07/2020 22:42:58 (ET). Electronically Signed: James Lindsey MD at 22:30 EDT Tel , Service support , Head/Neck CTA 11/07/20 22:18 IMPRESSION: 1. Normal CTA Head and neck with contrast. 2. Gas within the cervical final canal unknown etiology. Question recent surgery or injection. Electronically Signed: Matt Balderas DO at 22:50 EDT Tel [phone], Service support , ADDENDUM: 11/07/20 2259 IMPRESSION: 1. Normal CTA Head and neck with contrast. 2. Gas within the cervical final canal unknown etiology. Question recent surgery or injection. N.B. : The above Results were Read Back by Matt Balderas DO to Matthew Wood MD, and understanding confirmed on 11/07/2020 22:52:47 (ET). Electronically Signed: Matt Balderas DO at 22:50 EDT Tel [phone], Service support , Chest X-Ray 11/07/20 22:48 IMPRESSION: Normal x-ray examination of the chest. Electronically Signed: Matt Balderas DO at 23:28 EDT Tel [phone], Service support , Brain MRI 11/08/20 00:50 IMPRESSION: 1. No MRI evidence of acute or subacute ischemic infarct. 2. 2 abnormal lesions in the body of the left caudate nucleus (series 7 and 8, image 16). These were present previously and are unchanged. These are benign lesions but the exact etiology is unknown at this time. MRI of the brain with intravenous contrast to include thin multiplanar sections will help clarify. Electronically Signed: Joo Roberson MD at 14:00 EDT , Service support , D/C Instructions Discharge Diet: No restrictions Call your doctor if you observe: Shortness of breath, Dizziness, Chest pain and - (Worsening numbness/tingling, new neurologic symptoms) Meaningful Use Info Meaningful Use Diagnoses (Choose all that apply): None applicable Discharge Plan Admission Admit Date/Time: 11/07/20 23:14 Primary Reason for Your Visit: Neurologic symptoms Attending Provider: Stella Casiano Primary Care Provider: [facility] Consulting Providers: Gemini Magallon Instructions Additional Instructions / Restrictions: Patient Problems: Altered Health Status related to Hospitalization Patient Goals: *Optimal Level of Health *Keep Appointments *Medication Compliance *Remain Safe Discharge Orders/Prescriptions Prescriptions: No Action Advil 1 tab PO/SL PRN PRN (Reason: Cold Symptoms) RF: 0 Referrals / Follow Up: Gemini Magallon MD [STAFF PHYSICIAN] - In 1 Week [facility] DO [Primary Care Provider] - In 1 Week Josr Celeste MD [STAFF PHYSICIAN] - In 1 Week Disposition Disposition (needs filled in before D/C Order can be placed): Home, Self Care Documented by User: Dr. Stella Casiano MD 11/08/20 18:02 Providers Date of Admission: 11/07/20 Reason For Visit: DYSARTHRIA, CVA Medications at Discharge Home Medications Advil 1 tab PO/SL PRN PRN 11/08/20 ABG / Lab / Microbiology Data Result Diagrams: 11/08/20 04:55 11/08/20 04:55 Discharge Plan Admission Admit Date/Time: 11/07/20 23:14 Primary Reason for Your Visit: Neurologic symptoms Attending Provider: Stella Casiano Primary Care Provider: [facility] Consulting Providers: Gemini Magallon Instructions Additional Instructions / Restrictions: Patient Problems: Altered Health Status related to Hospitalization Patient Goals: *Optimal Level of Health *Keep Appointments *Medication Compliance *Remain Safe Discharge Orders/Prescriptions Prescriptions: No Action Advil 1 tab PO/SL PRN PRN (Reason: Cold Symptoms) RF: 0 Referrals / Follow Up: Gemini Magallon MD [STAFF PHYSICIAN] - In 1 Week [facility] DO [Primary Care Provider] - In 1 Week Josr Celeste MD [STAFF PHYSICIAN] - In 1 Week Disposition Disposition (needs filled in before D/C Order can be placed): Home, Self Care Charges/Coding Addendum Addendum: Patient seen by Kylee BAE under my supervision Patient is a 25 y/o male with a PMh as outlined who was admitted via the ED with a complaint of slurred speech and increased numbness of his left arm. He had a history of chronic headaches, which had been difficult to control with medications, and had also recently received a cervical injection for neck pain on day of admission. He was admitted and managed for slurred speech, to r/o stroke. He had a CT of the brain which was negative for any evidence of ischemia, and CTA of hte was also negative. MRI of the brain was negative for any evidence of ischemia or hemorrhage but showed 2 abnormal lesions in the body of the left caudate nucleus which had been previously present and were unchanged. His symptoms had completely resolved at time of review. Patient was discharged home on 11/08/2020 and is to follow-up with his PCP and neurology [facility] 1 to 2 weeks. Patient cannot be evaluated by [facility] as he wanted to be discharged before neurology could review him. Patient seen and examined prior to discharge. He felt well and had no complaints. Review of symptoms otherwise negative. Labs and vitals reviewed. Home medication reviewed and reconciled. O/E: Const alert, oriented x3 and no apparent distress Orientation / Consciousness: awake, oriented to person, oriented to place and oriented to time HEENT normocephalic and moist oral mucous membranes Eyes PERRL, EOMs intact bilaterally and conjunctivae normal Neck no lymphadenopathy Resp normal respiratory effort and clear to auscultation bilaterally Cardio regular rate, regular rhythm and no murmurs Peripheral Pulses: pulses 2+ throughout GI normal to inspection, nondistended, normoactive bowel sounds, non-tender and non-distended Extremity normal to inspection Skin no rashes or lesions noted Lesions: no lesions Rashes: no rashes Trauma: no lacerations or abrasions Neuro CN's II-XII intact bilaterally, no focal motor deficits, no sensory deficits noted and deep tendon reflexes 2+ bilaterally Neuro Narrative: Chronic left upper extremity paresthesias. Psych mental status grossly normal and affect normal Plan is for discharge home today. Rest as per Kylee BAE's note, which I have reviewed and endorsed. Visit Charges OBSV E&M: [id number] Observation care discharge
[2020-11-08] MEDS: Acetaminophen 325 MG Tablet 650 MG PO (14:19)
== END 2020-11-08 13:55 | disposition home or self-care (01) ==
LOC: ED 23:51 → PCU 11-08 00:12
PROVIDERS: Emergency Medicine; Admitting Provider Family Medicine; Emergency Provider Emergency Medicine; PCP Family Medicine; Visit Provider Student in an Organized Health Care Education/Training Program
DX: F80.2 Mixed receptive-expressive language disorder (principal); G56.22 Lesion of ulnar nerve, left upper limb; R51.9 Headache, unspecified; R29.700 NIHSS score 0; R20.2 Paresthesia of skin; R41.0 Disorientation, unspecified; R20.0 Anesthesia of skin
CPT/HCPCS: 36415; 70450; 70496; 70498; 70551; 71045; 80048; 80053; 80061; 80307; 82962; 83036; 83735; 84443; 84484; 85025; 85610; 85730; 87426; 92610; 93005; 94762; 96360; 96361; 97802; 99218; 99251; 99285; J7030; Q9967; A4216; G0378; G0463

== ENCOUNTER → 2021-06-18 07:18 | Outpatient (CLI) | payer OTHER, SELFPAY ==
--- NOTE | 2021-06-18 07:32 | MRI_ITS ---
EXAM: MR HEAD WITHOUT AND WITH INTRAVENOUS CONTRAST CLINICAL INDICATION: Follow-up abnormal findings on previous MRI of the brain. TECHNIQUE: Multiplanar and multisequence MR images of the brain were obtained without and with intravenous contrast. This report was created using [employer] report generation technology. CONTRAST: 17ML IV DOTAREM COMPARISON: MRI brain without contrast 11/08/2020. CT head without contrast 11/07/2020. FINDINGS: BRAIN AND EXTRA-AXIAL SPACES: No focal signal masses throughout the brain parenchyma. No abnormal enhancing lesions intraaxially and extra-axially. Thin postcontrast axial images show CSF signal intensity in the mid body of the left caudate nucleus blending imperceptibly with the left lateral ventricle in the coronal reconstructed images. No intra- or extra-axial hemorrhage. No evidence of acute infarct. There is preservation of the daily/white matter interface. Posterior fossa structures are unremarkable. No hydrocephalus. Basal cisterns are patent. SELLA: Unremarkable. Normal sella turcica, pituitary gland, infundibular stalk, optic chiasm and hypothalamus. AUDITORY SYSTEM: Unremarkable. The internal auditory canals are patent. BONES/JOINTS: Unremarkable. No discrete lytic or blastic abnormalities. SINUSES: Unremarkable as visualized. Clear. MASTOID AIR CELLS: Unremarkable as visualized. Clear. ORBITS: Unremarkable as visualized. Both globes, extraocular muscles, optic nerves and retrobulbar fat appear unremarkable. VASCULATURE: Unremarkable as visualized. Normal flow voids in the major intracranial circulation. MRI/Brain W/WO Contrast IMPRESSION: 1. Normal MRI brain with and without contrast. 2. The previously described abnormal lesions in the body of left caudate nucleus are CSF signal intensity and nonenhancing. They are lateral extensions of the mid body of the left lateral ventricle as confirmed on the postcontrast T1 weighted coronal views and the T2 weighted coronal FSE sequences. Electronically Signed: Joo Roberson MD at 14:11 EDT ,
== END ==
PROVIDERS: PCP Family Medicine
DX: R93.0 Abnormal findings on diagnostic imaging of skull and head, not elsewhere classified (principal)
CPT/HCPCS: 70553; A9575

== ENCOUNTER 2022-08-27 13:30 | Emergency (ER) | payer OTHER, SELFPAY ==
[2022-08-27 13:31] VITALS: BP 148/99; PULSE 98; RESP 18; TEMP 36.6; O2SAT 100
--- NOTE | 2022-08-27 13:39 | ED.RN ---
[place] from [facility] care coming in to do drug testing.
[2022-08-27] MEDS: Orphenadrine 60 MG/2 ML Ampul IM (14:12)
[2022-08-27] MEDS: Ketorolac 30 MG/ML Syringe IM (14:12)
--- NOTE | 2022-08-27 14:45 | EDS_ITS ---
HPI <CATALINO Mitchell - Last Filed: 08/27/22 15:04> History of Present Illness Chief Complaint: Back Narrative Narrative: Patient is a 27-year-old male with no significant medical history presents to the emergency department with right-sided back pain that raise down the right leg. This is a Workmen's Comp. case. 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 He states he took a step back, turned a certain way and had a severe pain to the right lower back that raise on the right leg. Patient continues to have right lower back pain as well as some numbness and tingling that goes down to the right foot. He is ambulatory h owever does have worsening pain with any bending, sitting or standing for extended period of time. He denies any bowel or bladder incontinence. No history of any IV drug abuse. PFSH <CATALINO Mitchell - Last Filed: 08/27/22 15:04> PFSH Home Medications Advil 1 tab PO/SL PRN PRN Cold Symptoms 11/08/20 [History Last Taken Unknown] naproxen 500 mg tablet (Naprosyn) 500 mg PO BID PRN pain #20 tabs 08/27/22 [Rx Last Taken Unknown] oxycodone-acetaminophen 5 mg-325 mg tablet (Percocet) 1 tab PO Q8H PRN pain 3 days #10 tabs 08/27/22 [Rx Last Taken Unknown] prednisone 50 mg tablet 50 mg PO DAILY #5 tabs 08/27/22 [Rx Last Taken Unknown] Allergy/AdvReac Type Severity Reaction Status Date / Time doxycycline AdvReac NEEDS Verified 11/07/20 22:08 FOLLOW-UP Social History (Updated 11/08/20 @ 01:05 by Marlena Garcia) household members: family housing: house current occupational status: employed 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 Smoking Status: Never smoker alcohol intake: current alcohol intake frequency: a few times a month substance use type: does not use ROS <CATALINO Mitchell - Last Filed: 08/27/22 15:04> ROS ED ROS Narrative Constitutional: Negative for fever, chills, weight loss, weakness Eyes: Negative for vision loss, vision change, double vision ENT: Negative for any sore throat, ear pain, congestion Cardiovascular: Negative for any chest pain, tightness, palpitations Respiratory: Negative for any cough, sputum production, hemoptysis, dyspnea, dyspnea on exertion, orthopnea Gastrointestinal: Negative for any abdominal pain, nausea, vomiting, diarrhea, constipation, blood in stool, blood in vomit : Negative for any urinary frequency, dysuria, retention, blood in urine Muscle skeletal: Negative for any muscle joint pain, stiffness, myalgias, arthralgias, neck pain. Positive right lower back pain that radiates to the right leg Neurological: Negative for any headache, syncope, numbness or tingling, dizziness Skin: Negative for any rashes, lumps, itching, abrasions, lacerations Psychiatric: Negative for any depression, anxiety, stress, suicidal ideation, homicidal ideation Hematologic: Negative for any easy bruising, excessive bruising, easy bleeding Allergies: Negative for any eczema, hives, rash EXAM <CATALINO Mitchell - Last Filed: 08/27/22 15:04> Physical Exam Narrative Exam Narrative: Vital signs reviewed. HEET: Head normocephalic atraumatic, TMs clear bilaterally. Posterior pharynx is clear, moist mucous membranes. Nares clear bilaterally. Neck: Supple with no lymphadenopathy or tenderness. No signs of meningismus, negative jolt sign. Cardiac: Regular rate and rhythm no murmurs gallops or rubs, equal peripheral pulses bilaterally. Respiratory: Lungs clear to auscultation bilaterally. No chest tenderness. Abdomen: Soft, nontender, nondistended. No abdominal bruit or pulsatile masses. No hepatosplenomegaly Extremities: No peripheral edema, no signs of gross trauma or deformity. Active full range of motion of all extremities. Patient patient does have some right lower back pain that raise on the right leg. Positive straight leg test. Patient does have pain that goes down to the bottom of the foot. There is no active foot drop. Patient able to walk on his heels as well as his toes. Reflexes are intact. No red flag signs. Neuro: Cranial nerves II through XII intact, no focal neurological deficits. Skin: Clean dry and intact with no rash, purpura, petechiae, vesicles or pustules. Backs/flank: No CVA tenderness, no midline spinal tenderness, no deformity. Psych: Normal mood and affect. No SI, HI or acute psychosis. Const Vital Signs: 08/27/22 13:31 Temperature 97.8 F Temperature Source Temporal Pulse Rate 98 Respiratory Rate 18 Blood Pressure 148/99 H Blood Pressure Mean 115 Pulse Ox 100 Oxygen Delivery Method Room Air <Dr. Domingo Hamilton MD - Last Filed: 08/27/22 15:13> Physical Exam Const Vital Signs: 08/27/22 13:31 Temperature 97.8 F Temperature Source Temporal Pulse Rate 98 Respiratory Rate 18 Blood Pressure 148/99 H Blood Pressure Mean 115 Pulse Ox 100 Oxygen Delivery Method Room Air MDM <CATALINO Mitchell - Last Filed: 08/27/22 15:04> [facility] Treatment and Re-Evaluation :: Patient appears well, patient appears nontoxic, vital signs are stable. Patient presents to the emergency department with complaints of lower back pain while at work. There is no trauma, do not believe an x-ray is indicated. Patient's physical examination is consistent with a lumbar strain with sciatica. Patient has no red flag signs, no concern for cauda equina, spinal abscess. Patient has no foot drop. Patient was given IM Toradol, IM Norflex. He will also be given a [place] here. He was given tomorrow off, he will have to follow-up with Workmen's Comp. as well as return to work with full accommodations such as limited bending, no lifting over 20 pounds, allowed to sit and stand for comfort. No prolonged walking or standing. Patient will be sent home with anti-inflammatories as well as narcotic analgesia, and a short course of steroids. He is instructed to follow-up at the [facility] for Workmen's Comp., given return precautions to the emergency department. He is happy with the plan of care, all questions answered. Patient stable for discharge <Dr. Domingo Hamilton MD - Last Filed: 08/27/22 15:13> [facility] Narrative Medical decision making narrative: I have personally performed a face to face assessment of the patient and have reviewed the MANUELITO Note. I performed a substantive portion of the visit including all aspects of the following. My acosta findings include: History is remarked for acute right back pain radiating down the back of his leg with numbness of his foot. He has no prior history of back problems. There is no history of direct trauma. He has bowel bladder dysfunction. He he states its unusual for him to walk. Uncertain whether he has a foot drop. He has no buckling of his knees going up or down steps. Exam is remarkable for pain. He has slow limited motion because of pain. Straight leg test is positive on the right with a negative crossover test. Patella and ankle reflex are 2+. EHLs intact. Able to walk on heels and toes. Gait observed without foot drop. Able to perform a 1 legged squat more easily on the left than right. Right he states he had difficulty performing because of pain. Patient has altered sensation L5 dermatome on the right only. Patella and ankle reflex are 2+ and symmetric. DP and PT pulse are palpable. Medical Decision Making patient's history and physical is concerning for sciat ica due to an L5 disc. Since he has no objective neurologic findings but does complain of subjective altered sensation L5 dermatome conservative therapy with oral meds rest and ice. He will need follow-up with corporate care and possible referral to spine surgeon. Other additions or changes: Discharged home with appropriate home-going instructions and work excuse Discharge Plan Triage Chief Complaint: Back ED Midlevel Provider: Matthew Patel ED Provider: Domingo Hamilton Dx/Rx/DC Orders Clinical Impression: Acute bilateral low back pain with right-sided sciatica, Paresthesia of right foot Instructions: ED Back Sprain/Strain, ED Sciatica Prescriptions: New prednisone 50 mg tablet 50 mg PO DAILY Qty: 5 0RF oxycodone-acetaminophen [Percocet] 5-325 mg tablet 1 tab PO Q8H PRN (Reason: pain) 3 Days Qty: 10 0RF naproxen [Naprosyn] 500 mg tablet 500 mg PO BID PRN (Reason: pain) Qty: 20 0RF No Action Advil 1 tab PO/SL PRN PRN (Reason: Cold Symptoms) Primary Care Provider: Harrison Bettencourt Referrals: Harrison Bettencourt DO [Primary Care Provider] - Activity Restrictions/Additional Instructions: Please follow the work status. Due to the sciatic, best to be sent to a spine physician. Please use medications as prescribed. You may not use the oxycodone while at work. Disposition Disposition: Home, Self Care
[2022-08-27] MEDS: HYDROcodone Bitartrate/Apap 5/325 Tablet PO (15:14)
== END 2022-08-27 15:22 | disposition home or self-care (01) ==
PROVIDERS: Emergency Provider Emergency Medicine; PCP Family Medicine; Visit Provider Emergency Medicine
DX: M54.41 Lumbago with sciatica, right side (principal); R20.2 Paresthesia of skin
CPT/HCPCS: 96372; 99281; 99282

== ENCOUNTER → 2022-09-19 | Outpatient (CLI) | payer OTHER, SELFPAY ==
--- NOTE | 2022-09-19 09:20 | MRI_ITS ---
STUDY: MRI LUMBAR SPINE WITHOUT CONTRAST REASON FOR EXAM: Male, 27 years old. LBP w/ lower extrem. radicular pain, sciatica right side TECHNIQUE: Standardized fat and water weighted pulse sequences were obtained in the sagittal and axial planes. COMPARISON: X-ray 09/01/2022 FINDINGS: T12-L1: Normal endplates. Normal disc height, hydration and morphology. Normal bilateral facet joints. Normal central canal and bilateral lateral recesses. Normal bilateral intervertebral neural foramina. Normal lumbar lordosis. There is no substantial scoliosis. Normal conus medullaris that terminates at the T12/L1. Sacralization of the L5 segment L1-2: Normal endplates. Normal disc height, hydration and morphology. Normal bilateral facet joints. Normal central canal and bilateral lateral recesses. Normal bilateral intervertebral neural foramina. L2-3: Normal endplates. Normal disc height, hydration and morphology. Normal bilateral facet joints. Normal central canal and bilateral lateral recesses. Normal bilateral intervertebral neural foramina. L3-4: Moderate sized central disc protrusion produces moderate spinal stenosis with mild bilateral lateral recess stenosis and no neural foraminal stenosis. L4-5: Mild bilateral facet hypertrophy and ligament flavum hypertrophy. Moderate sized central disc protrusion produces moderate spinal stenosis with mild bilateral lateral recess stenosis and mild bilateral neural foraminal stenosis. L5-S1: Rudimentary disc at L5/S1 without spinal stenosis or neural foraminal stenosis. Normal visualized sacral ala. Normal visualized paraspinous soft tissue structures. MRI/Spine Lumbar (Routine) IMPRESSION: Multilevel degenerative changes, as described above. Electronically Signed: Jerald Aguayo MD at 23:26 EDT ,
== END | disposition home or self-care (01) ==
LOC: MRI 09:08
PROVIDERS: PCP Family Medicine; Referring Provider Physician Assistant; Visit Provider Physician Assistant
DX: M54.41 Lumbago with sciatica, right side (principal); M54.10 Radiculopathy, site unspecified
CPT/HCPCS: 72148

== ENCOUNTER → 2022-11-24 | Outpatient (CLI) | payer OTHER, SELFPAY | END | disposition home or self-care (01) | PROVIDERS: PCP Family Medicine; Referring Provider Family Medicine; Visit Provider Family Medicine | DX: N34.2 Other urethritis (principal) | CPT/HCPCS: 87086; 87491; 87591 ==

== ENCOUNTER 2022-12-24 07:00 | Outpatient (RCR) | payer OTHER, SELFPAY ==
--- NOTE | 2022-10-06 09:29 | HP.PTEVAL_ITS ---
Patient's Visit Information Visit Information Visit Information: LAUREN JUDD is a 27 year old M referred to Physical Therapy by ALPHONSO Sandhu with a diagnosis of Lumbar strain. Date of Evaluation: 10/06/22 Physical Therapist: Fabiano Garza DPT Visit Plan Frequency: 3x /Week Duration: 6 Weeks Plan: Start with extension progression. Add in neutral spine core stability. Progress to dynamic core strengthening as tolerated. Subjective Subjective: Pt. is here today for his initial evaluation with diagnosis of lumbar strain. INjury was on August 27. He was shoveling heavy and a few minutes later his R leg gave out and had extreme pain in his R back and leg. Pt. had numbness at tingling down to his foot. He is doing better now, but still has some issues. Pt. reports having more tight feeling rather than pain now. He was initially on a muscle relaxor and pain medication. Done with those now taking lyrica. He is back to work full duty with okay tolerance. 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 Pt is hopeful to reduce symptoms in order get back to all work and recreational activities without limitations. Pt. did have an MRI showing: L3-4: Moderate sized central disc protrusion produces moderate spinal stenosis with mild bilateral lateral recess stenosis and no neural foraminal stenosis. L4-5: Mild bilateral facet hypertrophy and ligament flavum hypertrophy. Moderate sized central disc protrusion produces moderate spinal stenosis with mild bilateral lateral recess stenosis and mild bilateral neural foraminal stenosis. L5-S1: Rudimentary disc at L5/S1 without spinal stenosis or neural foraminal stenosis. Pain Lumbar spine: Pain Intensity (Out of 10): 1 Pain Intensity Range: 0 and 3 Objective Objective: POSTURE: Pt. has slight flexed posture, no lateral shift noted. PALPATION: Pt. has increased tenderness at R side of Lumbar spine including erector spinae and increased pain with spring testing of L3-L5. Did not cause radicular symptoms. NEURO: Pt. has decreased R lateral distal LE sensation to light touch. Pt. has 1+ L patellar DTR, 2+ L achillies DTR. 2+ achillies and patellar DTR. Pt. is able to rise on heels and toes without issues. ROM: LUMBAR SPINE: flexion mod loss increase NW iwth return, extension mod loss increase NW with return. SB R nil loss NE, SB L nil loss increase NW with return. rotation nil loss NE bilat. Pt. has normal B hip ROM without increase in symptoms. MMT: PT. has 5/5 strength throughout BLEs without increase in symptoms. Core strength: fair. GAIT: Pt. has fairly normal gait pattern. Pt. did have decreased arm swing, but loosened up with increased walking. No distal LE pain Special Tests L/S Slump test left side: Negative L/S Slump test right side: Negative L/S Left Straight Leg Raise: Negative L/S Right Straight Leg Raise: Negative Lumbar Standing: Flexion - Mechanical Response: No effect Lumbar Standing: Flexion - Symptoms During Testing: Increases Lumbar Standing: Flexion - Symptoms After Testing: Worse Lumbar Standing: Extension - Mechanical Response: No effect Lumbar Standing: Extension - Symptoms During Testing: Increases Lumbar Standing: Extension - Symptoms After Testing: No worse Lumbar Standing: Right Side Glides - Mechanical Response: No effect Lumbar Standing: Right Side [place] - Symptoms During Testing: No effect Lumbar Standing: Right Side [place] - Symptoms After Testing: No effect Lumbar Standing: Left Side [place] - Mechanical Response: No effect Lumbar Standing: Left Side [place] - Symptoms During Testing: No effect Lumbar Standing: Left Side [place] - Symptoms After Testing: No effect Lumbar Lying: Flexion - Mechanical Response: No effect Lumbar Lying: Flexion - Symptoms During Testing: No effect Lumbar Lying: Flexion - Symptoms After Testing: No effect Lumbar Lying: Extension - Mechanical Response: No effect Lumbar Lying: Extension - Symptoms During Testing: Decreases Comments:: slight improvement Balance/Special Test Scores Oswestry Low Back Score: 13 Goals Goal 1:: LTG: Pt. to be I with HEP. Goal Time Frame: 4-6 Weeks Goal 2:: STG: Pt. to have full lumbar ROM without increase in symptoms. Goal Time Frame: 2-4 Weeks Goal 3:: LTG: pt. to have no radicular symptoms in his RLE. Goal Time Frame: 4-6 Weeks Goal 4:: LTG: Pt. to have increased core strength to good in all directions to increase tolerance to all work related activities. Goal Time Frame: 4-6 Weeks Goal 5:: LTG: pt. to complete all work activities without increase in symptoms. Goal Time Frame: 4-6 Weeks Rehabilitation Potential Physical Therapy Diagnosis: Pt. has signs and symptoms consistent with lumbar strain. pt. has has signs and symptoms consistent with discogenic pathology. He had some mild radicular symptoms, which have improved over the past few weeks, but still has some. He has most difficulty with trunk flexion. Pt. would benefit from PT to reduce symptoms further progressing back to work and recreational activities. Rehabilitation Potential: Good Anticipated Interventions Patient/Client Instruction: Educate patient on: Condition, Plan of Care, Risk Factors and Benefits of Fitness Program For the Purpose of:: To improve decision making, To facilitate caregiver knowledge, To improve self management, To prevent re-injury and To improve ability to perform tasks related to life management Therapeutic Exercise to Include: Strength training, Power training, Postural training, Flexibilty training, Passive ROM, Active ROM, Dynamic Lumbar Stabilization and Epifanio Exercises For the Purpose of:: To decrease pain, To decrease swelling/inflammation, To increase ROM, To improve nutrient delivery to tissue, To increase oxygenation perfusion, To improve muscle performance and motor function, To improve gait and locomotor functions, To improve health of tissue and To decrease soft tissue restriction Manual Therapy Techniques to Include: Mobilization and Soft tissue mobilization For the Purpose of:: To decrease pain and To increase ROM TENS: Yes Cryotherapy (ice pack, ice massage): Yes For the Purpose of:: To decrease pain, To increase ROM, To improve nutrient delivery to tissue, To increase oxygenation perfusion and To improve muscle performance and motor function Text: Thank you for the opportunity to evaluate your patient. For Medicare and Medicare HMO plans, please review the plan of care and approve it. It will need to be FAXED BACK to us at [phone] for Medicare purposes. For Medicare only, by signing this I certify the plan of care. Please let me know if there are questions or concerns regarding this plan of care. Physician Signature: Date:
--- NOTE | 2022-11-12 07:32 | HP.PTRE(2) ---
Re-Evaluation Intro: ALPHONSO Sandhu, It has been my pleasure to treat LAUREN JUDD over the last visits for . Please see the progress note below for an update on the physical therapy plan of care! Anticipated Interventions Re-Evaluation Ending Re-evaluation ending: Please do not hesitate to contact me at [phone] by phone or if you have questions or concerns regarding this new plan of care! Sincerely, SILVIA WinnT
--- NOTE | 2022-11-12 07:38 | HP.PTREVAL ---
Re-Evaluation Intro: ALPHONSO Sandhu, It has been my pleasure to treat LAUREN JUDD over the last 12 visits for Lumbar strain. Please see the progress note below for an update on the physical therapy plan of care! Subjective Subjective: Pt. reports being 75% better overall. He has been doing better, but this morning more pain. Pt. reports pain in R side of lumbar spine. Pain yesterday in his R leg. It reports having a quick jab pain to toes and having N/T in his knee. Better today, but more stiff. Objective Objective/Function: ROM: Lumbar spine: flexion mod loss increase NW, extension min loss decrease better, rotation nil loss NE, SB nil loss NE. Pt. has tight HS and hip flexors as well. MMT: Pt. has equal and good strength of BLEs. Core strength: fair, lumbar extension strength fair. GAIT/stairs: normal without issues. Normal sensation in BLEs. Bending fwrd continues to be the most painful. Mornings are still stiff and painful, better as the day progresses. Standing is better than sitting. Pt. continues to have presentations of discogenic involvement, but has improved since his initial evaluation. He did drag some brush and felt some pain in his R leg and low back. Plan Plan Plan: I am going to ask for a date extension to get the rest of his 7 visits in. I would like to continue with extension progression and add in core and lumbar extensor strengthening. Balance/Gait/Functional tests Balance/Special Test Scores Oswestry Low Back Score: 9 Goals Goals Goal 1:: LTG: Pt. to be I with HEP. Goal Time Frame: 4-6 Weeks Goal Progress: Progressing Goal 2:: STG: Pt. to have full lumbar ROM without increase in symptoms. Goal Time Frame: 2-4 Weeks Goal Progress: Progressing Goal 3:: LTG: pt. to have no radicular symptoms in his RLE. Goal Time Frame: 4-6 Weeks Goal Progress: Progressing Goal 4:: LTG: Pt. to have increased core strength to good in all directions to increase tolerance to all work related activities. Goal Time Frame: 4-6 Weeks Goal Progress: Progressing Goal 5:: LTG: pt. to complete all work activities without increase in symptoms. Goal Time Frame: 4-6 Weeks Goal Progress: Progressing Anticipated Interventions Anticipated Interventions Patient/Client Instruction: Educate patient on: Condition, Plan of Care, Risk Factors and Benefits of Fitness Program For the Purpose of:: To improve decision making, To facilitate caregiver knowledge, To improve self management, To prevent re-injury and To improve ability to perform tasks related to life management Therapeutic Exercise to Include: Strength training, Power training, Postural training, Flexibilty training, Passive ROM, Active ROM, Dynamic Lumbar Stabilization and Epifanio Exercises For the Purpose of:: To decrease pain, To decrease swelling/inflammation, To increase ROM, To improve nutrient delivery to tissue, To increase oxygenation perfusion, To improve muscle performance and motor function, To improve gait and locomotor functions, To improve health of tissue and To decrease soft tissue restriction Manual Therapy Techniques to Include: Mobilization and Soft tissue mobilization For the Purpose of:: To decrease pain and To increase ROM TENS: Yes Cryotherapy (ice pack, ice massage): Yes For the Purpose of:: To decrease pain, To increase ROM, To improve nutrient delivery to tissue, To increase oxygenation perfusion and To improve muscle performance and motor function Re-Evaluation Ending Re-evaluation ending: Please do not hesitate to contact me at [phone] by phone or if you have questions or concerns regarding this new plan of care! Sincerely, Fabiano Garza DPT
--- NOTE | 2023-02-03 11:18 | HP.PTDCSUM ---
Discharge Summary D/C summary: It has been my pleasure to treat LAUREN JUDD referred by ALPHONSO Sandhu, with the diagnosis of Lumbar strain for a total of 17 visit(s). Discharge Date: Please see the following information for a summary of their discharge status. Subjective Subjective: Pt. reports doing well in [place] on his honeymoon, but has been having increased LBP. Not bad this AM, but yesterday was pretty rough. Sitting is still the worst pain. He did sneeze the other day and was very intense pain. He has been a little less compliant with prone stretching REIL, but has been doing more standing version. Pain Lumbar spine: Pain Intensity (Out of 10): 1 Overall Improvement % Improvement: 75 Objective Objective/Function: Pt has no leg pain currently with PT this date. Pt. did well with PT. He had no symptoms at rest. He still has some issues with fwrd flexion, but was better after doing REIL and with core stability exercises. I talked to him about doing REIL and DARA at work, using a lumbar roll when sitting for longer car rides at work. He had some concerns about him being charged with an MRI as well. I did direct him to his home health care case manager as I was unable to assist with this line of questioning. He reports wanting to talk to his specialist about his pain with sitting and to see how to progress. Overall he is better than when he started, but is still having issues with prolonged sitting, driving at work. I urged him to use a lumbar support for increased stability. Pt. consents. Goals Goal 1:: LTG: Pt. to be I with HEP. Goal Progress: Goal Met Goal 2:: STG: Pt. to have full lumbar ROM without increase in symptoms. Goal Progress: Progressing Goal 3:: LTG: pt. to have no radicular symptoms in his RLE. Goal Progress: Progressing Goal 4:: LTG: Pt. to have increased core strength to good in all directions to increase tolerance to all work related activities. Goal Progress: Progressing Goal 5:: LTG: pt. to complete all work activities without increase in symptoms. Goal Progress: Progressing Plan Plan: Pt. is to continue with REIL, super man lumbar extension, quadruped core strengthening as well. Pt. 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 D/C Information d/c sentence: If there are questions or concerns regarding this patient's physical therapy, please feel free to call me at [phone]. Thank you for the referral of this patient. Sincerely, Fabiano Garza, DPT Balance/Gait/Functional tests Balance/Special Test Scores Oswestry Low Back Score: 9 Improvement % Improvement: 75
== END 2022-12-24 19:00 | disposition home or self-care (01) ==
LOC: PT 07:00
PROVIDERS: PCP Family Medicine; Referring Provider Physician Assistant Surgical; Visit Provider Physician Assistant Surgical
DX: S39.012D Strain of muscle, fascia and tendon of lower back, subsequent encounter (principal)
CPT/HCPCS: 97014; 97110; 97161; 97164; G0283